=== PATIENT | female | born 1980 | race Hispanic/Latino ===

== ENCOUNTER 2023-04-22 00:23 | Emergency (ER) | payer OTHER ==
[~2023-04-22] VITALS: Ht 152.4 cm; Wt 78.9 kg
[2023-04-22 00:26] VITALS: BP 129/65; PULSE 89; RESP 20
[2023-04-22] MEDS ORDERED: CEPHALEXIN 500 MG CAPSULE PO ONE (04:30)
[2023-04-22] MEDS ORDERED: CEPH500B PO (04:33)
== END 2023-04-22 04:40 | disposition home or self-care (01) ==
LOC: EDH 00:23
DX: E11.9 Type 2 diabetes mellitus without complications (principal); S01.311A Laceration without foreign body of right ear, initial encounter; Z98.890 Other specified postprocedural states; W22.09XA Striking against other stationary object, initial encounter; Y93.89 Activity, other specified; Y92.89 Other specified places as the place of occurrence of the external cause; Y99.8 Other external cause status
CPT/HCPCS: 12011